=== PATIENT | female | born 1995 | race Caucasian/White ===

== ENCOUNTER 2021-09-23 07:48 | Inpatient (IN) ==
[2021-09-23] MEDS ORDERED: OXYTOCIN 30 UNITS/500 ML BAG IV PRN ×3 (07:56→15:22)
--- NOTE | 2021-09-23 08:17 | History & Physical Report ---
Date of Service September 23, 2021 Assessment & Plan (1) Encounter for supervision of normal in multigravida: Plan: Admit to L&D. EFM/toco. labs, IV. Admission and Anticipated Discharge Date Admission Date: September 23, 2021 History of Present Illness Chief Complaint: IOL Primary Care Provider: DARWIN PCP 26yo @ 40 06/13, here for IOL for postdates. with: Anti K antibody screen *pt had this last and Spouse was negative. Anesthesia consult 07/05/21 d/t hx spinal fusion/rods Allergies Allergy/AdvReac Type Severity Reaction Status Date / Time amoxicillin Allergy Rash Verified 09/22/21 15:20 Home Medications Medication Instructions Recorded Confirmed Type cetirizine [Zyrtec] PO 01/26/21 09/22/21 History fluticasone propionate [Flonase INTRANASAL 01/26/21 09/22/21 History Allergy Relief] prenat.vits,gustavo,htu-kece-oenkx 1 tab PO DAILY 01/26/21 09/22/21 History Patient History Medical History Scoliosis S/p spinal fusion Seasonal allergies Varicella vaccination Surgical History History of appendectomy S/P spinal fusion S/P wisdom tooth extraction Family History Father Brain tumor Aunt Breast cancer Denies family history of Ovarian cancer Colorectal cancer Social History (Updated 01/26/21 @ 11:00 by Claudia Lerner) Smoking Status: Never smoker Second Hand Exposure: No; Hx Alcohol Use: No Hx Substance Use: No Preferred Language: Hungarian Communication Ability: Effective Dry Chain Puller Required: No Beliefs That Will Affect Care: None marital status: marital status details: Herb Blanton (25) [phone] Current Living Situation: Family Current Living Situation Comment: Lives at home with and son. 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 No s/s chorio or abruption. Skin: no rashes, warm and dry Psychiatric: A+Ox3, euthymic affect Coding Level of Care Code None Diagnoses Encounter for supervision of normal in multigravida Z34.80
[2021-09-23 08:29] LABS: Hematocrit (blood only) 36.7 % (37-47); Hemoglobin 12.5 g/dL (12.0-16.0); Mean Corpuscular Hemoglobin 31.6 pg (25-34); Mean Corpuscular Hgb Conc 34.1 g/dL (32-36); Mean Corpuscular Volume 92.9 fL (80-100); Platelet Count 185 K/uL (130-400); RDW Coefficient of Variation 13.8 % (11.5-14.5); RDW Standard Deviation 47.2 fL (36.4-46.3); Red Blood Count 3.95 M/uL (4.2-5.4); White Blood Count 9.13 K/uL (4.8-10.8)
[2021-09-23] MEDS: LACTATED RINGER'S 1,000 ML IV PRN ×2 (09:14→13:15)
[2021-09-23] MEDS ORDERED: SODIUM CHLORIDE 0.9% INJ 10 ML VIAL ONE (11:20)
[2021-09-23] MEDS ORDERED: fentaNYL citrate 100 MCG/2 ML VIAL ONE (11:20)
[2021-09-23] MEDS ORDERED: ePHEDrine sulfate 50 MG/ML AMP ONE (11:20)
[2021-09-23] MEDS ORDERED: fentaNYL 2MCG/ML ROPIVACAINE 1.25MG/ML 100 ML BAG EPI ONE (11:20)
[2021-09-23] MEDS ORDERED: BUPIVACAINE 0.25% 30 ML VIAL ONE (11:20)
--- NOTE | 2021-09-23 12:47 | Anesthesiology Consultation ---
Date of Service September 23, 2021 Assessment & Plan Chart Review Chart Review: Acceptable Risk for Labor Epidural Consults Requested none History Height/Weight Height: 5 ft 5 in Weight: 79.379 kg Allergies Allergy/AdvReac Type Severity Reaction Status Date / Time amoxicillin Allergy Rash Verified 09/22/21 15:20 Medications Home Medications Medication Instructions Recorded Confirmed Last Taken cetirizine [Zyrtec] PO 01/26/21 09/22/21 09/22/21 fluticasone propionate [Flonase INTRANASAL 01/26/21 09/22/21 09/22/21 Allergy Relief] prenat.vits,gustavo,rlm-jrbt-pcaoy 1 tab PO DAILY 01/26/21 09/22/21 09/22/21 Active Medications Generic Name Dose Route Start Last Admin Trade Name Freq PRN Reason Stop Dose Admin Oxytocin 30 units in 500 mls @ 6 mls/hr 09/23/21 07:56 09/23/21 10:40 Pitocin IV 09/25/21 07:55 0.36 units/hr .Q24H PRN 6 mls/hr Labor Induction/Augmentation Titration Protocol 0.36 UNITS/HR Lactated Ringer's 1,000 mls @ 125 mls/hr 09/23/21 07:56 09/23/21 11:55 Lr IV 09/25/21 07:55 125 mls/hr .Q8H PRN Infusion L&D Protocol Protocol Past Medical History Medical History Scoliosis S/p spinal fusion Seasonal allergies Varicella vaccination Past Family History Family History Father Brain tumor Aunt Breast cancer Denies family history of Ovarian cancer Colorectal cancer Past Surgical History Surgical History History of appendectomy S/P spinal fusion S/P wisdom tooth extraction Social History Smoking Status: Never smoker Hx Alcohol Use: No Hx Substance Use: No Physical Exam Vital Signs Last Vital Signs Temp 36.5 C 09/23/21 11:38 Pulse 68 09/23/21 12:44 Resp 16 09/23/21 08:27 BP 106/56 L 09/23/21 12:38 Pulse Ox 99 09/23/21 12:44 Testing Laboratory Results 09/23/21 08:04 Blood Type A Positive 09/23/21 08:04 Antibody Screen POSITIVE A 09/23/21 08:04
[2021-09-23] MEDS ORDERED: NALOXONE HCL 0.4 MG/1 ML VIAL/CARP IV PRN (12:49)
[2021-09-23] MEDS ORDERED: diphenhydrAMINE 50 MG/ML VIAL IV PRN (12:49)
[2021-09-23] MEDS ORDERED: ePHEDrine sulfate 50 MG/ML AMP IV PRN (12:49)
[2021-09-23] MEDS ORDERED: NALOXONE HCL 1 MG in SODIUM CHLORIDE 0.9% 1000ML 1,000 ML IV PRN (12:49)
[2021-09-23] MEDS ORDERED: fentaNYL 2MCG/ML ROPIVACAINE 1.25MG/ML 100 ML BAG EPI PRN (12:49)
[2021-09-23] MEDS ORDERED: NALBUPHINE HCL INJ 10 MG/ML AMP IV PRN (12:49)
--- NOTE | 2021-09-23 14:07 | Labor Progress Brief Note ---
Date of Service September 23, 2021 Subjective Comfortable w/ epidural Assessment & Plan (1) : Plan: 26 y/o at 40w3d presents for eIOL VSS Ftus cat 1 Labor - pit at 10, good progression, now s/p arom gbs neg epidural in place will make sure T&S as anti-K Admission and Anticipated Discharge Date Admission Date: September 23, 2021 Physical Exam Genitourinary: Manual OB Exam: + cervical dilation 5 cm, + cervical effacement 70%, + station -2 and + amniotic fluid (arom clear) OB Exam Monitor Tracing: + external FHT monitor used, + external uterine monitor used (q4) and + category I (125/mod/+accel/-decel) Results & Data ([facility]) Vital Signs (Past 12 Hours) Vital Signs Temp Pulse Resp BP Pulse Ox 09/23/21 14:00 55 L 99/54 L 09/23/21 13:59 54 L 99 09/23/21 13:54 57 L 99 09/23/21 13:49 56 L 99 09/23/21 13:47 53 L 100/55 L 09/23/21 13:44 60 100 09/23/21 13:39 52 L 100 09/23/21 13:34 54 L 100 09/23/21 13:31 56 L 103/56 L 09/23/21 13:30 20 09/23/21 13:29 57 L 100 09/23/21 13:24 55 L 100 09/23/21 13:19 61 99 09/23/21 13:14 54 L 100 09/23/21 13:11 53 L 105/56 L 09/23/21 13:09 64 99 09/23/21 13:06 59 L 107/56 L 09/23/21 13:04 60 100 09/23/21 13:02 67 109/52 L 09/23/21 12:59 63 100 09/23/21 12:58 58 L 103/55 L 09/23/21 12:54 60 100 09/23/21 12:53 76 96/61 L 09/23/21 12:49 62 98 09/23/21 12:46 77 106/59 L 09/23/21 12:44 68 99 09/23/21 12:39 72 99 09/23/21 12:38 61 106/56 L 09/23/21 12:34 64 100 09/23/21 12:29 70 100 09/23/21 12:24 74 99 09/23/21 12:19 77 99 09/23/21 12:16 66 82 L 09/23/21 12:14 77 100 09/23/21 12:09 71 99 09/23/21 12:04 72 100 09/23/21 11:59 69 100 09/23/21 11:54 59 L 100 09/23/21 11:49 53 L 99 09/23/21 11:40 61 99 09/23/21 11:38 97.7 F 63 111/64 09/23/21 11:35 58 L 100 09/23/21 11:30 66 100 09/23/21 11:25 67 99 09/23/21 10:39 80 121/81 09/23/21 09:36 73 112/74 09/23/21 08:27 97.7 F 96 H 16 111/76 Coding Level of Care Code None Diagnoses Z34.90
--- NOTE | 2021-09-23 15:12 | Delivery Summary ---
Vaginal Delivery Summary Date of Service September 23, 2021 Vaginal Delivery Summary [facility] PREOPERATIVE DIAGNOSIS: 1. Single intrauterine at 40w3d 2. Anti-K antibody POSTOPERATIVE DIAGNOSIS: 1. Single intrauterine at 40w3d 2. Anti-K antibody 3. Delivered PROCEDURE: 1. Normal spontaneous vaginal delivery. SURGEON: Dimple Welsh MD ANESTHESIA: Epidural. ESTIMATED BLOOD LOSS: 300 mL FLUIDS: Continuous LR. URINE OUTPUT: None. COMPLICATIONS: None. CONDITION: Stable. INDICATIONS: 26 y/o at 40w3d presented for elective induction of labor today. complicated by maternal anti-K antibody status but father of baby is known to be negative. She was 3cm on arrival and pitocin started. She received an epidural for pain control and underwent artificial rupture of membranes at 5cm. 1 hour later she was found to be complete and head deliveri ng. FINDINGS: A viable female infant, weight pending with Apgars of 8 and 9 at 1 and 5 minutes respectively. SPECIMEN: Cord blood, placenta OPERATIVE REPORT: The patient progressed to 10 cm, 100% effaced and +3 station, head was noted to be partially delivered and she pushed over intact perineum once with anesthesia to deliver a viable female , weight and Apgars as above. Remainder of head of delivered in MT position. No nuchal cord was present. Body and shoulders were delivered without difficulty. was delivered to maternal abdomen and nursing staff. Delayed cord clamping was performed for 60 seconds. Cord was clamped and cut. Cord blood was obtained. Placenta delivered spontaneously intact with 3-vessel cord. IV oxytocin and fundal massage were given for excellent hemostasis. Vagina, cervix, perineum, and placenta were inspected. A hemostatic right labial abrasion was noted and no repair needed. Sponge and needle counts correct x2. No sponges were left behind. Mother and stable in immediate period. [facility] Vaginal Delivery Charge Vaginal Delivery Codes: 38239 global code for the antepartum, delivery, and post- Delivery Type Details: [facility]
[2021-09-23] MEDS ORDERED: BENZOCAINE 20% AER SPR 82.5 GM CAN EXT PRN (15:22)
[2021-09-23] MEDS ORDERED: HYDROCORTISONE ACETATE 25 MG SUPP PR PRN (15:22)
[2021-09-23] MEDS ORDERED: DIPHTHERIA/TETANUS/PERTUSSIS 0.5 ML SYR/VIAL IM ONE (15:22)
[2021-09-23] MEDS ORDERED: bisacodyL 10 MG SUPP PR PRN (15:22)
--- NOTE | 2021-09-23 16:06 | Anesthesia Procedure Note ---
Date of Service September 23, 2021 Anesthesia Post Epidural Note Vital Signs Vital Signs: Temp Pulse Resp BP Pulse Ox 36.5 C 57 L 20 108/67 99 09/23/21 11:38 09/23/21 16:01 09/23/21 13:30 09/23/21 16:01 09/23/21 14:54 Pain Intensity Lower Abdomen: Pain Intensity: 3 Notes Mental Status: alert / awake / arousable Nausea / Vomiting: adequately controlled Pain: adequately controlled Airway Patency, RR, SpO2: stable & adequate BP & HR: stable & adequate Hydration State: stable & adequate Neuraxial Anesthesia: was administered and sensory block is resolving Anesthetic Complications: no major complications apparent and Pt Satisfied with anesthetic care Epidural: Removed without complications and With tip intact
[2021-09-23] MEDS: DOCUSATE SODIUM 100 MG CAP PO SCH (21:07)
[2021-09-23] MEDS: IBUPROFEN 600 MG TAB PO PRN (22:38)
[2021-09-24] MEDS: IBUPROFEN 600 MG TAB PO PRN ×2 (05:10→11:46)
--- NOTE | 2021-09-24 07:00 | Obstetrical Progress Note ---
Date of Service September 24, 2021 Assessment & Plan (1) state: 26 yo PP1 from , doing well -Meeting all pp milestones -A+/rubella immune/ -f/u 6 weeks for appt, desires d/c today and stable to do so Subjective Ambulation: ambulating normally Voiding: no voiding problems Passing Gas:: Yes Diet Tolerance:: regular diet Lochia:: Small Feeding Type:: breast feeding Pain well managed with medication Review of Systems Denies fevers, chills, n/v, FONSECA, CP, SOB Physical Exam Constitutional WD/WN, vitals as above no acute distress Respiratory normal respiratory effort, lungs clear to auscultation Cardiovascular RRR, no murmur, no edema Gastrointestinal (Abdomen) Percussion/Palpation: abdomen soft; abdomen nontender fundus firm at umbilicus and NT Musculoskeletal BLE symmetric, nonerythematous, nontender Results & Data ([facility]) Vital Signs (Past 12 Hours) Vital Signs Temp Pulse Resp BP Pulse Ox 09/24/21 04:03 97.3 F L 55 L 18 113/79 98 09/23/21 23:11 97.9 F 54 L 18 108/69 97 09/23/21 19:40 98.1 F 74 18 125/73
[2021-09-24] MEDS: ACETAMINOPHEN 325 MG TAB PO PRN ×2 (08:00→14:14)
[2021-09-24] MEDS ORDERED: FERROUS SULFATE 325 MG TAB PO SCH (08:00)
[2021-09-24] MEDS ORDERED: PRENATAL VITAMIN 1 TAB PO SCH (08:00)
[2021-09-24] MEDS: DOCUSATE SODIUM 100 MG CAP PO SCH (08:00)
[2021-09-24] MEDS ORDERED: bisacodyL 5 MG TABEC PO SCH (20:00)
== END 2021-09-24 16:28 | disposition home or self-care (01) | DRG 807 ==
LOC: 4S1 07:48 → 4E2 19:13